=== PATIENT | female | born 1950 | race Caucasian/White ===

== ENCOUNTER 2021-07-16 16:10 | Outpatient (CLI) | payer MEDICARE, SELFPAY ==
--- NOTE | ~2021-07-16 | XR_ITS ---
EXAMINATION: XR finger 1st LT min 2V EXAM DATE: 07/16/2021 16:30 INDICATION: M79.645 - Pain in left finger(s). TECHNIQUE: Left 1st finger frontal, lateral and oblique projections obtained and reviewed. There i s no prior study for comparison. FINDINGS: There is moderate left 1st carpometacarpal, mild at the metacarpophalangeal primary osteoar thritis. There are no acute fractures or dislocations identified. There is no subcutaneous gas. The soft tissue is unremarkable. There are no radiopaque foreign bodies. 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 Reviewed, dictated and finalized at location A. [employer] UP [employer]IVER
== END 2021-07-16 16:11 | disposition home or self-care (01) ==
LOC: ANHIMG 16:14
PROVIDERS: PCP Family Medicine; Visit Provider Nurse Practitioner Family
DX: M18.12 Unilateral primary osteoarthritis of first carpometacarpal joint, left hand (principal); M19.042 Primary osteoarthritis, left hand
CPT/HCPCS: 73140

== ENCOUNTER 2022-11-05 14:32 | Outpatient (CLI) | payer MEDICARE, SELFPAY ==
[2022-11-05 15:58] LABS: Basophils Absolute Auto 0.1 K/mm3 (0.0-0.1); Basophils Percent Auto 0.8 % (0.2-1.2); Eosinophils Absolute Auto 0.1 K/mm3 (0-0.3); Eosinophils Percent Auto 1.6 % (0-4.4); Hemoglobin 15.3 g/dL (12.0-15.0); Immature Granulocyte Absolute 0.01 K/mm3 (0.00-0.031); Immature Granulocyte Percent A 0.2 % (0-0.5); Lymphocytes Absolute Auto 2.15 K/mm3 (0.9-3.2); Lymphocytes Percent Auto 35.4 % (18.3-44.2); Mean Corpuscular HGB Conc 32.6 g/dl (32-36); Mean Corpuscular Hemoglobin 32.3 pg (26-34); Mean Corpuscular Volume 99.4 fl (80-100); Mean Platelet Volume 8.8 fl (7.4-10.4); Monocytes Absolute Auto 0.4 K/mm3 (0.1-0.6); Monocytes Percent Auto 7.2 % (2.6-8.5); Neutrophils Absolute Auto 3.3 K/mm3 (1.3-6.7); Neutrophils Percent Auto 54.8 % (45.5-73.1); Platelet Count Result 294 k/mm3 (150-375); Red Blood Count 4.73 M/mm3 (4.2-5.4); White Blood Count 6.1 K/mm3 (4.5-10.0)
[2022-11-05 16:01] LABS: Appearance Urine Clear (Clear); Bilirubin Urine Negative (Negative); Blood Urine Negative (Negative); Color Urine Yellow (Yellow); Glucose Urine UA Negative (Negative); Ketones Urine Negative (Negative); Leukocyte Esterase Ur Negative LEU/UL (Negative); Nitrate Urine Negative (Negative); Protein Urine Negative (Negative); Specific Grav Ur 1.013 (1.001-1.035); Urobilinogen Urine 0.2 mg/dL (<2.0)
[2022-11-05 16:10] LABS: Add Urine Microscopic? NO
[2022-11-05 16:11] LABS: Alanine Aminotransferase 44 U/L (6-35); Albumin Level 4.6 g/dL (3.5-5.1); Alkaline Phosphatase 74 U/L (38-126); Anion Gap 5 mmol/L (8-16); Aspartate Amino Transferase 46 U/L (14-36); Bilirubin,Total 0.5 mg/dL (0.2-1.3); Blood Urea Nitrogen 29 mg/dL (7-17); Calcium 9.3 mg/dL (8.4-10.2); Carbon Dioxide 30 mmol/L (22-30); Chloride 101 mmol/L (98-107); Cholesterol 218 mg/dL (0-200); Estimated Glomerular Filt Rate > 60; Glucose 87 mg/dL (65-110); HDL Direct 55 mg/dL; Potassium 4.3 mmol/L (3.4-5.0); Sodium 136 mmol/L (137-145); Triglycerides 112 mg/dL (<150)
[2022-11-05 16:22] LABS: LDL Cholesterol Direct 130 mg/dL
== END 2022-11-05 14:33 | disposition home or self-care (01) ==
PROVIDERS: PCP Nurse Practitioner Family; Visit Provider Nurse Practitioner Family
DX: F32.A Depression, unspecified (principal); K59.00 Constipation, unspecified; E78.5 Hyperlipidemia, unspecified; N39.0 Urinary tract infection, site not specified; R82.90 Unspecified abnormal findings in urine; D64.9 Anemia, unspecified
CPT/HCPCS: 36415; 80048; 80061; 80076; 81003; 84443; 85025; 87177; 87209

== ENCOUNTER 2022-12-02 14:15 | Outpatient (CLI) | payer MEDICARE, SELFPAY | END 2022-12-02 14:16 | disposition home or self-care (01) | LOC: ANHLAB 14:16 | PROVIDERS: PCP Nurse Practitioner Family; Visit Provider Nurse Practitioner Family | DX: L29.0 Pruritus ani (principal) | CPT/HCPCS: 87177; 87209 ==

== ENCOUNTER 2022-12-17 00:31 | Day surgery (SDC) | payer MEDICARE, SELFPAY ==
[2022-12-09 09:19] VITALS: BMI 24.0
[2022-12-17 06:19] VITALS: BP 143/89; PULSE 88; RESP 20; TEMP 35.5; O2SAT 100; BMI 23.1
[2022-12-17] MEDS: LACTATED RINGERS 1,000 ML 150 ML IV CONT (06:34)
--- NOTE | 2022-12-17 07:21 | WPDANESEPPF ---
Anes - Initial Pre Proc Eval Procedure: Operation Date: 12/17/22 07:30 Proposed Procedures p Colonoscopy - Tyler Madden MD Date/Time: 12/17/22 07:21 Surgeon: Tyler Madden MD Pre Op Diagnosis: noninfectious gastroenteritis/colitis, Patient Data Age: 72 Gender: F Height: 1.6 m Weight: 59.4 kg Last Vital Signs Temp 96 F L 12/17/22 06:19 Pulse 88 12/17/22 06:19 Resp 20 12/17/22 06:19 BP 143/89 H 12/17/22 06:19 Pulse Ox 100 12/17/22 06:19 O2 Del Method Room Air 12/17/22 06:19 Allergies Allergy/AdvReac Type Severity Reaction Status Date / Time No Known Allergies Allergy Verified 12/17/22 06:18 Home Medications Medication Instructions Recorded Confirmed Type linaclotide 145 mcg capsule 145 mcg PO DAILY 1 month #30 caps 11/30/22 12/09/22 Rx (Linzess) Patient hx anesthesia problems: none Family hx anesthesia problems: none Results Review: All pre-operative results and documents have been reviewed as part of the pre-operative evaluation. [facility] Past Medical History Medical History Abnormal stools Abnormal urine Altered bowel habits Anal itching Anemia BMI 25.0-25.9,adult Chronic anxiety Chronic depression Colitis Constipation COVID-19 (~09/09/21) COVID antibody greater than 150 on 10/22/2021. Encounter for screening for cardiovascular disorders Encounter for screening for other viral diseases (~08/2021) patient requesting COVID antibody test Encounter to establish care Eyelid closing impairment Hyperlipidemia Pain of left thumb Postmenopausal hormone replacement therapy Screening for breast cancer UTI (urinary tract infection) Visual changes (~07/2021) intermittent drooping left eyelid Wellness examination Surgical History Surgical History H/O: hysterectomy History of abdominoplasty History of eyelid surgery december 2021 Family History Family History Father Hypertension Heart disease Cerebrovascular accident Mother Cancer Depression Sibling Depression Hypertension Other Hypertension Grandparent Diabetes mellitus Social History Social History Smoking status: Never smoker Alcohol intake: current Drinks per week: 7 Alcohol use details: 4 oz nightly Substance use: never Substance use type: does not use Living arrangements: alone Additional living arrangements comments: Occupation/Education: retired Gender identity (if verbalized by the patient): Female Sexual Orientation (if Verbalized by the Patient): Straight or Heterosexual Spiritual care concerns: No Anes - Eval Final PreProcedure Day of Procedure 12/17/22 07:21 Patient weight: normal Heart: regular rate and rhythm Lungs: clear to auscultation Airway: Mallampati scale class II Neurological: alert and oriented Last oral intake: >/= 8 hours ASA classification: II Emergent: no Anesthetic plan: proceed Anesthesia type and monitoring: general GIVS and standard monitoring Results Review: All pre-operative results and documents have been reviewed as part of the pre-operative evaluation. Informed Consent: The patient's anesthetic plan and its attendant risks and benefits were discussed with the patient/family/POA. Questions were solicited and answers provided to the satisfaction of the patient/family/POA.
--- NOTE | 2022-12-17 07:32 | WPDHPUPDATE1 ---
History and Physical Update Update Date/Time: 12/17/22 07:32 History and Physical has been reviewed, including an updated exam of the patient. There are NO changes in the patient's condition. Risks, benefits, and alternatives have been discussed and questions answered. Patient agrees to proceed with procedure.
[2022-12-17 07:51] VITALS: BP 139/89; PULSE 76; RESP 22; O2SAT 100
[2022-12-17 08:01] VITALS: BP 136/92; PULSE 82; RESP 20; O2SAT 100
[2022-12-17 08:11] VITALS: BP 136/107; PULSE 78; RESP 17; O2SAT 100
== END 2022-12-17 08:23 | disposition home or self-care (01) ==
PROVIDERS: PCP Nurse Practitioner Family; Visit Provider Internal Medicine Gastroenterology
PROC: 0DJD8ZZ Inspection of Lower Intestinal Tract, Via Natural or Artificial Opening Endoscopic (ICD-10-PCS; CPT 45378; principal; 2022-12-17 07:30)
DX: Z12.11 Encounter for screening for malignant neoplasm of colon (principal); D12.2 Benign neoplasm of ascending colon; K57.30 Diverticulosis of large intestine without perforation or abscess without bleeding; K64.8 Other hemorrhoids; K59.00 Constipation, unspecified
CPT/HCPCS: 45385; 88305; J2704; J7120

== ENCOUNTER 2022-12-23 15:38 | Outpatient (CLI) | payer MEDICARE, SELFPAY | END 2022-12-23 15:39 | disposition home or self-care (01) | PROVIDERS: PCP Nurse Practitioner Family; Visit Provider Nurse Practitioner Family | DX: R19.5 Other fecal abnormalities (principal); L29.0 Pruritus ani | CPT/HCPCS: 87177; 87209 ==

== ENCOUNTER 2023-01-20 12:55 | Outpatient (CLI) | payer MEDICARE, SELFPAY ==
--- NOTE | ~2023-01-20 | CT_ITS ---
EXAMINATION: CT sinus wo con DATE: 01/20/2023 13:08 INDICATION: Acute recurrent maxillary sinusitis. Bilateral sensorineural area hearing loss TECHNIQUE: Computed tomography (CT) of the paranasal sinuses was performed without contrast. Iterativ e reconstruction technique was employed. Exam dose: 268.51 mGy-cm total exam DLP. COMPARISON: None FINDINGS: There is rightward deviation of the nasal septum. Mild intralamellar cell of both middle nasal turbinates. The middle and inferior nasal turbinates are moderately prominent in size, most prominent at the left inferior nasal turbinate. The ostiomeatal units are patent. Slight lateral mucoperiosteal thickening of the right frontoethmoid area. Mild focal posterior latera l right ethmoid septal soft tissue thickening. The paranasal sinuses are otherwise normally developed and aerated. The mastoid air cells are well-developed and aerated bilaterally. Middle and inner ear apparatus appear normal bilaterally. IMPRESSION: Rightward deviation of nasal septum Soft tissue swelling of the nasal turbinates Bilateral middle nasal turbinate intralamellar cell Minimal mucoperiosteal thickening in the right frontal ethmoid and posterolateral right ethmoid area Reviewed, dictated and finalized at Location A. Reviewed, dictated and finalized at location A. IMPRESSION: Rightward deviation of nasal septum Soft tissue swelling of the nasal turbinates Bilateral middle nasal turbinate intralamellar cell Minimal mucoperiosteal thickening in the right frontal ethmoid and posterolater al right ethmoid area
== END 2023-01-20 12:56 ==
PROVIDERS: PCP Nurse Practitioner Family; Visit Provider Otolaryngology
DX: J01.01 Acute recurrent maxillary sinusitis (principal); H90.3 Sensorineural hearing loss, bilateral; J34.2 Deviated nasal septum
CPT/HCPCS: 70486

== ENCOUNTER 2023-03-29 13:24 | Outpatient (NON) | payer MEDICARE, SELFPAY | END 2023-03-29 13:25 | disposition home or self-care (01) | PROVIDERS: PCP Nurse Practitioner Family; Visit Provider Nurse Practitioner Family | DX: R19.5 Other fecal abnormalities (principal); K52.9 Noninfective gastroenteritis and colitis, unspecified; L29.0 Pruritus ani | CPT/HCPCS: 87177; 87209 ==

== ENCOUNTER 2023-04-18 12:56 | Emergency (ER) | payer MEDICARE, SELFPAY ==
--- NOTE | ~2023-04-18 | XR_ITS ---
EXAM: XR hand RT min 3V DATE: 04/18/2023 17:07 HISTORY: R fifth finger pain x 2 months, NKI . COMPARISON: None available. FINDINGS: Normal mineralization. No fracture or dislocation. No lytic or blastic lesion. Moderate po lyarticular osteoarthritis. No erosion or periosteal change. Soft tissues within normal limits. IMPRESSION: No acute osseous finding in the right hand. Reviewed, dictated and finalized at location K.
[2023-04-18 13:15] VITALS: BP 184/100; PULSE 89; RESP 18; TEMP 36.4; O2SAT 100
--- NOTE | 2023-04-18 15:51 | ECG_ITS ---
Measurements Intervals [place] Rate: 68 P: 53 TN: 148 QRS: 24 QRSD: 90 T: 45 QT: 404 QTc: 430 Interpretive Statements SINUS RHYTHM NO PREVIOUS ECG AVAILABLE FOR COMPARISON Electronically Signed On 04-19-2023 12:11:31 CDT by Kymberly Cueto M.D.
--- NOTE | 2023-04-18 15:57 | ED.GENADULT ---
HPI - General Adult General Chief complaint: Unspecified Stated complaint: weakness Time Seen by Provider: 04/18/23 15:57 Source: patient Mode of arrival: ambulatory Limitations: no limitations History of Present Illness HPI narrative: This is a 72-year-old female presenting to the ED with multiple complaints. She reports she has been feeling generally unwell over the past 10 days. States she is unable to elaborate on this. Reports for the last month she has had right arm and hand numbness/tingling. Reports this is intermittent. Reports it causes her to drop objects at times. Reports she has pain in the right fifth finger and is concerned for arthritis in her hand. States she has been in between doctors and has not seen a PCP for quite some time. States she has been to multiple doctors in the past year who have been unable to put it altogether. Denies any further area of weakness. Denies speech changes, headache, neck pain, LOC, abdominal pain, chest pain, shortness of breath, cough, nausea, vomiting. Related Data Allergies Allergy/AdvReac Type Severity Reaction Status Date / Time No Known Allergies Allergy Verified 03/23/23 11:18 Review of Systems Review of Systems: All systems as dictated in [facility] Past Medical History Medical History Abnormal stools Abnormal urine Altered bowel habits Anal itching Anemia BMI 25.0-25.9,adult Chronic anxiety Chronic depression Colitis Constipation COVID-19 (~09/09/21) COVID antibody greater than 150 on 10/22/2021. Encounter for screening for cardiovascular disorders Encounter for screening for other viral diseases (~08/2021) patient requesting COVID antibody test Encounter to establish care Eyelid closing impairment Hyperlipidemia Pain of left thumb Postmenopausal hormone replacement therapy Screening for breast cancer UTI (urinary tract infection) Visual changes (~07/2021) intermittent drooping left eyelid Wellness examination Surgical History Surgical History H/O: hysterectomy History of abdominoplasty History of eyelid surgery december 2021 Family History Family History Father Hypertension Heart disease Cerebrovascular accident Mother Cancer Depression Sibling Depression Hypertension Other Hypertension Grandparent Diabetes mellitus Social History Social History (Reviewed 03/23/23 @ 11:18 by Radha Norton Smoking status: Never smoker Alcohol intake: current Drinks per week: 7 Alcohol use details: 4 oz nightly Substance use: never Substance use type: does not use Living arrangements: alone Additional living arrangements comments: Occupation/Education: retired Gender identity (if verbalized by the patient): Female Sexual Orientation (if Verbalized by the Patient): Straight or Heterosexual Spiritual care concerns: No Exam Narrative: GENERAL: Well-appearing, well-nourished, and in no acute distress. HEAD: Normocephalic, atraumatic. EYES: PERRLA and EOMI. ENT: Nares clear, no rhinorrhea or epistaxis. Mucous membranes moist. Oropharynx without tonsillar hypertrophy exudate or other lesions. NECK: Supple. No adenopathy or masses. CHEST: No respiratory distress. Clear to auscultation. No wheezes rales or rhonchi HEART: Regular rate and rhythm. No murmur heard. Normal peripheral pulses. ABDOMEN: Soft, nontender, nondistended, normal active bowel sounds. MSK: Mild swelling throughout the right hand, worse at the interphalangeal joints. No significant erythema, warmth or drainage. Normal range of motion. No edema. SKIN: Warm, dry, no rash. NEURO: Alert and oriented x3. 4+/5 radio journalist strength on the right. 5 out of 5 on the left. 5 out of 5 strength and sensation throughout the extremities otherwise. PSYCH: Normal mood and affect. Course Malorie
[2023-04-18 16:58] LABS: Basophils Percent Auto 0.5 % (0.2-1.2); Eosinophils Absolute Auto 0.1 K/mm3 (0-0.3); Eosinophils Percent Auto 1.1 % (0-4.4); Hematocrit 44.7 % (37.0-47.0); Hemoglobin 14.7 g/dL (12.0-15.0); Immature Granulocyte Absolute 0.02 K/mm3 (0.00-0.031); Immature Granulocyte Percent A 0.3 % (0-0.5); Lymphocytes Absolute Auto 2.36 K/mm3 (0.9-3.2); Lymphocytes Percent Auto 37.5 % (18.3-44.2); Mean Corpuscular HGB Conc 32.9 g/dl (32-36); Mean Corpuscular Hemoglobin 32.7 pg (26-34); Mean Corpuscular Volume 99.6 fl (80-100); Mean Platelet Volume 9.1 fl (7.4-10.4); Monocytes Absolute Auto 0.4 K/mm3 (0.1-0.6); Monocytes Percent Auto 5.9 % (2.6-8.5); Neutrophils Absolute Auto 3.5 K/mm3 (1.3-6.7); Neutrophils Percent Auto 54.7 % (45.5-73.1); Platelet Count Result 260 k/mm3 (150-375); Red Blood Count 4.49 M/mm3 (4.2-5.4); Red Cell Distribution Width 12.1 % (11.5-14.5); White Blood Count 6.3 K/mm3 (4.5-10.0)
[2023-04-18 17:11] LABS: Alanine Aminotransferase 35 U/L (6-35); Albumin Level 4.7 g/dL (3.5-5.1); Alkaline Phosphatase 62 U/L (38-126); Anion Gap 6 mmol/L (8-16); Aspartate Amino Transferase 43 U/L (14-36); Bilirubin,Total 0.5 mg/dL (0.2-1.3); Blood Urea Nitrogen 22 mg/dL (7-17); Calcium 9.3 mg/dL (8.4-10.2); Carbon Dioxide 30 mmol/L (22-30); Chloride 101 mmol/L (98-107); Estimated CRCL calculation 64 ml/min; Estimated Glomerular Filt Rate > 60; Glucose 113 mg/dL (65-110); Potassium 3.5 mmol/L (3.4-5.0); Sodium 137 mmol/L (137-145)
[2023-04-18 17:39] LABS: Thyroid Stimulating Hormone 0.942 uIU/mL (0.465-4.680)
[2023-04-18 18:40] VITALS: BP 175/89; PULSE 63; RESP 16; O2SAT 99
[2023-04-18 18:45] VITALS: RESP 16
[2023-04-18 19:34] LABS: Appearance Urine Clear (Clear); Bilirubin Urine Negative (Negative); Blood Urine Negative (Negative); Color Urine Yellow (Yellow); Glucose Urine UA Negative (Negative); Ketones Urine Negative (Negative); Leukocyte Esterase Ur Negative LEU/UL (Negative); Nitrate Urine Negative (Negative); Protein Urine Negative (Negative); Specific Grav Ur 1.007 (1.001-1.035); Urobilinogen Urine 0.2 mg/dL (<2.0); pH Urine 7.5 (5.0-9.0)
--- NOTE | 2023-04-18 19:41 | ED.GENADULT ---
HPI - General Adult General Chief complaint: Unspecified Stated complaint: weakness Time Seen by Provider: 04/18/23 15:57 Source: patient Mode of arrival: ambulatory Limitations: no limitations History of Present Illness HPI narrative: Patient presents to the emergency department from home with concerns for right hand and wrist paresthesias. She moved back and forth between here in [place]. She does not have a primary care provider. However she has seen a urologist, and ENT a spanish speaking babysitter and well digger in the past year. Her blood pressure was addressed by the well digger and they did not recommend starting any blood pressure medications. She states she has not seen a primary care provider because it takes 6 months to get into them. She would like a referral. She was having symptoms of night sweats and waking up with paresthesias throughout her body. This has improved. The right hand and wrist paresthesias have been ongoing for the past month. Denies weakness or numbness. She states it is hard to use her hand when it is tingling. 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 Overall patient is very pleasant and well-appearing exam grossly benign Related Data Allergies Allergy/AdvReac Type Severity Reaction Status Date / Time No Known Allergies Allergy Verified 03/23/23 11:18 Review of Systems Review of Systems: CONSTITUTIONAL: Denies fever, chills, or sweats. EYES: Denies visual changes, redness, or discharge. ENT: Denies rhinorrhea, congestion, sore throat, or otalgia. CARDIOVASCULAR: Denies chest pain, palpitations, or edema. RESPIRATORY: Denies cough or dyspnea. GASTROINTESTINAL: Denies abdominal pain, nausea, vomiting, or diarrhea. GENITOURINARY: Denies dysuria or hematuria. SKIN: Denies rash or itching. MUSCULOSKELETAL: Denies back pain, joint pain, or myalgia. NEUROLOGIC: Denies headache, numbness, or weakness. PSYCHIATRIC: Denies anxiety or depression. [facility] Past Medical History Medical History Abnormal stools Abnormal urine Altered bowel habits Anal itching Anemia BMI 25.0-25.9,adult Chronic anxiety Chronic depression Colitis Constipation COVID-19 (~09/09/21) COVID antibody greater than 150 on 10/22/2021. Encounter for screening for cardiovascular disorders Encounter for screening for other viral diseases (~08/2021) patient requesting COVID antibody test Encounter to establish care Eyelid closing impairment Hyperlipidemia Pain of left thumb Postmenopausal hormone replacement therapy Screening for breast cancer UTI (urinary tract infection) Visual changes (~07/2021) intermittent drooping left eyelid Wellness examination Surgical History Surgical History H/O: hysterectomy History of abdominoplasty History of eyelid surgery december 2021 Family History Family History Father Hypertension Heart disease Cerebrovascular accident Mother Cancer Depression Sibling Depression Hypertension Other Hypertension Grandparent Diabetes mellitus Social History Social History Smoking status: Never smoker Alcohol intake: current Drinks per week: 7 Alcohol use details: 4 oz nightly Substance use: never Substance use type: does not use Living arrangements: alone Additional living arrangements comments: Occupation/Education: retired Gender identity (if verbalized by the patient): Female Sexual Orientation (if Verbalized by the Patient): Straight or Heterosexual Spiritual care concerns: No Exam Narrative: GENERAL: Well-appearing, well-nourished, and in no acute distress. HEAD: Normocephalic, atraumatic. EYES: PERRLA and EOMI. ENT: Nares clear, no rhinorrhea or epistaxis. Mucous membranes moist. NECK: Supple. CHEST: Clear to aus
[2023-04-18 19:53] LABS: Add Urine Microscopic? NO
[2023-04-18 20:29] VITALS: BP 178/86; PULSE 79; RESP 16; O2SAT 99
== END 2023-04-18 20:33 | disposition home or self-care (01) ==
PROVIDERS: Physician Assistant; Emergency Provider Emergency Medicine
DX: R20.2 Paresthesia of skin (principal); I10 Essential (primary) hypertension; F41.9 Anxiety disorder, unspecified; F32.A Depression, unspecified
CPT/HCPCS: 36415; 73130; 80053; 81003; 84443; 85025; 93005; 99283

== ENCOUNTER 2023-04-25 11:02 | Outpatient (CLI) | payer MEDICARE, SELFPAY | END 2023-04-25 11:03 | disposition home or self-care (01) | LOC: ANHAUDASC 11:02 | PROVIDERS: Visit Provider Otolaryngology | DX: H90.3 Sensorineural hearing loss, bilateral (principal) | CPT/HCPCS: 92557; 92567 ==

== ENCOUNTER 2023-05-24 13:45 | Outpatient (NON) | payer MEDICARE, SELFPAY | END 2023-05-24 13:46 | disposition home or self-care (01) | PROVIDERS: Visit Provider Internal Medicine Gastroenterology | DX: R19.5 Other fecal abnormalities (principal) | CPT/HCPCS: 87045; 87177; 87209; 87427; 87449 ==

== ENCOUNTER 2023-05-31 01:34 | Day surgery (SDC) | payer MEDICARE, SELFPAY ==
[2023-05-18 14:44] VITALS: BMI 23.3
--- NOTE | 2023-05-27 10:30 | SUR.PREOP ---
Patient called regarding upcoming procedure. Reviewed preop instructions, appointment times, and procedure prep.
[2023-05-31 12:49] VITALS: BP 170/96; PULSE 82; RESP 16; TEMP 36.6; O2SAT 99
[2023-05-31] MEDS: LACTATED RINGERS 1,000 ML 150 ML IV CONT (12:55)
--- NOTE | 2023-05-31 13:27 | WPDHPUPDATE1 ---
History and Physical Update Update Date/Time: 05/31/23 13:27 History and Physical has been reviewed, including an updated exam of the patient. There are NO changes in the patient's condition. Risks, benefits, and alternatives have been discussed and questions answered. Patient agrees to proceed with procedure.
--- NOTE | 2023-05-31 13:33 | WPDANESEPPF ---
Anes - Initial Pre Proc Eval Procedure: Operation Date: 05/31/23 13:30 Proposed Procedures p Esophagogastroduodenoscopy - Tyler Madden MD Date/Time: 05/31/23 13:33 Surgeon: Tyler Madden MD Pre Op Diagnosis: other chest pain Patient Data Age: 72 Gender: F Height: 1.65 m Weight: 63 kg Last Vital Signs Temp 97.8 F 05/31/23 12:49 Pulse 82 05/31/23 12:49 Resp 16 05/31/23 12:49 BP 170/96 H 05/31/23 12:49 Pulse Ox 99 05/31/23 12:49 O2 Del Method Room Air 05/31/23 12:49 Allergies Allergy/AdvReac Type Severity Reaction Status Date / Time No Known Allergies Allergy Verified 05/31/23 12:42 Home Medications Medication Instructions Recorded Confirmed Type No Home Medications 05/31/23 05/31/23 History Patient hx anesthesia problems: none Family hx anesthesia problems: none Results Review: All pre-operative results and documents have been reviewed as part of the pre-operative evaluation. [facility] Past Medical History Medical History (Updated 05/05/23 @ 12:16 by Tyler Madden MD) Abnormal stools Abnormal urine Altered bowel habits Anal itching Anemia BMI 25.0-25.9,adult Chronic anxiety Chronic depression Colitis Constipation COVID-19 (~09/09/21) COVID antibody greater than 150 on 10/22/2021. Encounter for screening for cardiovascular disorders Encounter for screening for other viral diseases (~08/2021) patient requesting COVID antibody test Encounter to establish care Eyelid closing impairment Hyperlipidemia Non-cardiac chest pain Pain of left thumb Postmenopausal hormone replacement therapy Screening for breast cancer UTI (urinary tract infection) Visual changes (~07/2021) intermittent drooping left eyelid Wellness examination Surgical History Surgical History H/O: hysterectomy History of abdominoplasty History of eyelid surgery december 2021 Family History Family History Father Hypertension Heart disease Cerebrovascular accident Mother Cancer Depression Sibling Depression Hypertension Other Hypertension Grandparent Diabetes mellitus Social History Social History (Reviewed 03/23/23 @ 11:18 by Radha Norton Smoking status: Never smoker Alcohol intake: current Drinks per week: 7 Alcohol use details: occasional Substance use: never Substance use type: does not use Living arrangements: alone Additional living arrangements comments: Occupation/Education: retired Gender identity (if verbalized by the patient): Female Sexual Orientation (if Verbalized by the Patient): Straight or Heterosexual Spiritual care concerns: No Anes - Eval Final PreProcedure Day of Procedure 05/31/23 13:33 Patient weight: normal Heart: regular rate and rhythm Lungs: clear to auscultation Airway: Mallampati scale class II Neurological: alert and oriented Last oral intake: >/= 8 hours ASA classification: II Emergent: no Anesthetic plan: proceed Anesthesia type and monitoring: general GIVS and standard monitoring Results Review: All pre-operative results and documents have been reviewed as part of the pre-operative evaluation. Informed Consent: The patient's anesthetic plan and its attendant risks and benefits were discussed with the patient/family/POA. Questions were solicited and answers provided to the satisfaction of the patient/family/POA.
[2023-05-31 14:05] VITALS: BP 160/107; RESP 16; O2SAT 99
[2023-05-31 14:15] VITALS: BP 153/98; RESP 20; O2SAT 98
[2023-05-31 14:25] VITALS: BP 150/90; RESP 20; O2SAT 98
== END 2023-05-31 14:33 | disposition home or self-care (01) ==
PROVIDERS: Visit Provider Internal Medicine Gastroenterology
PROC: 0DJ08ZZ Inspection of Upper Intestinal Tract, Via Natural or Artificial Opening Endoscopic (ICD-10-PCS; CPT 43235; principal; 2023-05-31 13:30)
DX: K44.9 Diaphragmatic hernia without obstruction or gangrene (principal); R19.5 Other fecal abnormalities; R19.4 Change in bowel habit; F32.A Depression, unspecified
CPT/HCPCS: 43239; 88305; J2704; J7120

== ENCOUNTER 2023-10-11 23:05 | Emergency (ER) | payer MEDICARE, SELFPAY ==
--- NOTE | ~2023-10-11 | CT_ITS ---
EXAMINATION: CTA chest PE protocol DATE: 10/12/2023 01:33 INDICATION: Shortness of breath. TECHNIQUE: Computed tomography angiography (CTA) of the chest was performed with 100 mL Omnipaque-350 intravenous contrast timed to evaluate the pulmonary arteries. Coronal maximum intensity projection 3D-reconstructions were created by the technologist. Automated exposure control and iterative reconst ruction technique were employed. The dose-length product was 417.73 mGy-cm. COMPARISON: None. FINDINGS: The lungs demonstrate diffuse septal thickening. There are groundglass and airspace opaciti es in the lungs, worst in the upper lobes. A calcified left lung nodule and calcified left hilar lymp h nodes are consistent with old granulomatous disease. No pleural effusion. The heart size is normal. No pericardial effusion. There is no pulmonary embolus. There is thoracic levoscoliosis. There is se rene cervical and thoracic and lumbar spondylosis. There is mild chronic anterior wedging of multiple vertebral bodies. There is a fracture deformity of the body of the sternum. IMPRESSION: 1. Diffuse lung disease with an upper lobe predominance, likely pulmonary edema and/or pneumonia. 2. Age-indeterminate fracture deformity of the body of the sternum. 3. No pulmonary embolus. Reviewed, dictated and finalized at location A.
--- NOTE | ~2023-10-11 | XR_ITS ---
EXAMINATION: XR chest 1V portable INDICATION: Overdose TECHNIQUE: Portable AP chest at 2326 hours COMPARISON: None available FINDINGS: There are diffuse opacities throughout the lungs with a mid and upper lung zone predominanc e. The heart size is normal. No pleural effusion or pneumothorax. There is questionable right posteri or eighth rib fracture. Severe thoracic and lumbar spondylosis is noted. Surgical clips in the right upper quadrant are likely from prior cholecystectomy. IMPRESSION: 1. Diffuse lung disease with a mid and upper lung zone predominance which could reflect pulmonary stephen ma and/or pneumonia. Reviewed, dictated and finalized at location F. IMPRESSION: 1. Diffuse lung disease with a mid and upper lung zone predominance which could reflect pulmonary edema and/or pneumonia.
[2023-10-11 23:02] VITALS: BP 147/96; PULSE 97; RESP 24; TEMP 36.6; O2SAT 95
--- NOTE | 2023-10-11 23:11 | ECG_ITS ---
Measurements Intervals [place] Rate: 96 P: 64 LA: 148 QRS: 51 QRSD: 94 T: 60 QT: 393 QTc: 498 Interpretive Statements SINUS RHYTHM BASELINE ARTIFACT- V4 NORMAL ECG COMPARED TO ECG 04/18/2023 16:12:55 NO SIGNIFICANT CHANGES Electronically Signed On 10-12-2023 14:13:13 CDT by Cr Briones D.O.
--- NOTE | 2023-10-11 23:14 | ED.GENADULT ---
HPI - General Adult General Chief complaint: Overdose Stated complaint: OVERDOSE, ROSC IN FIELD Time Seen by Provider: 10/11/23 23:11 History of Present Illness HPI narrative: Patient is a 73-year-old female who presents to the emergency department this morning after an accidental overdose. Patient's son called EMS due to concern that his mother was at responsive. Solar Design Engineer were 1st on scene due to concern for apnea and a nonpalpable pulse they initiated CPR and administered 4 mg of intranasal Narcan. Patient achieved Sarkis immediately and upon EMS arrival, she was responsive to painful stimuli. By the time patient arrived to our emergency department patient was more responsive and vitals were stable. Patient's daughter did present to the emergency department and test that patient was working on a birthday gift for her son and wanted to stay upon longer to finish it so she decided to use some of her son's cocaine which he purchased off the internet, the [employer]. Daughter states that son is unsure if the cocaine has been laced with anything including fentanyl as he is unsure of where it came from. Daughter has no concern at this time that this was an intentional overdose and denies ever witnessing any previous suicidal behavior or ideations. There are no other modifying, alleviating, or precipitating factors at this time. Related Data Allergies Allergy/AdvReac Type Severity Reaction Status Date / Time No Known Allergies Allergy Verified 10/11/23 23:29 Review of Systems Review of Systems: All systems are reviewed and are negative unless stated otherwise in the HPI. [facility] Past Medical History Medical History Abnormal stools Abnormal urine Altered bowel habits Anal itching Anemia BMI 25.0-25.9,adult Chronic anxiety Chronic depression Colitis Constipation COVID-19 (~09/09/21) COVID antibody greater than 150 on 10/22/2021. Encounter for screening for cardiovascular disorders Encounter for screening for other viral diseases (~08/2021) patient requesting COVID antibody test Encounter to establish care Eyelid closing impairment Hyperlipidemia Non-cardiac chest pain Pain of left thumb Postmenopausal hormone replacement therapy Screening for breast cancer UTI (urinary tract infection) Visual changes (~07/2021) intermittent drooping left eyelid Wellness examination Surgical History Surgical History H/O: hysterectomy History of abdominoplasty History of eyelid surgery december 2021 Family History Family History Father Hypertension Heart disease Cerebrovascular accident Mother Cancer Depression Sibling Depression Hypertension Other Hypertension Grandparent Diabetes mellitus Social History Social History Smoking status: Never smoker Alcohol intake: current Drinks per week: 7 Alcohol use details: occasional Substance use: never Substance use type: does not use Living arrangements: alone Additional living arrangements comments: Occupation/Education: retired Gender identity (if verbalized by the patient): Female Sexual Orientation (if Verbalized by the Patient): Straight or Heterosexual Spiritual care concerns: No Exam Narrative: General: Awake, afebrile, in no acute distress. HEENT: PERRL, no rhinorrhea, no post nasal drip, oropharynx clear. Neck: Trachea midline, no JVD, no lymphadenopathy. Cardiovascular: Regular rate and rhythm, no murmurs, rubs or gallops, no peripheral edema. Respiratory: Clear to auscultation bilaterally, no tachypnea, no wheezing, no rhonchi, no rubs, no respiratory distress. Abdomen: Soft, nontender, nondistended, no rebound, no guarding, no peritoneal signs. Musculoskeletal: No joint swelling or deformity, normal muscle tone.
[2023-10-11 23:17] VITALS: RESP 24; O2SAT 96
[2023-10-11 23:22] LABS: Basophils Absolute Auto 0.1 K/mm3 (0.0-0.1); Basophils Percent Auto 0.6 % (0.2-1.2); Eosinophils Absolute Auto 0.1 K/mm3 (0-0.3); Eosinophils Percent Auto 1.7 % (0-4.4); Immature Granulocyte Absolute 0.12 K/mm3 (0.00-0.031); Immature Granulocyte Percent A 1.4 % (0-0.5); Lymphocytes Absolute Auto 3.01 K/mm3 (0.9-3.2); Lymphocytes Percent Auto 35.7 % (18.3-44.2); Mean Corpuscular HGB Conc 32.6 g/dl (32-36); Mean Corpuscular Hemoglobin 31.2 pg (26-34); Mean Corpuscular Volume 95.8 fl (80-100); Mean Platelet Volume 8.8 fl (7.4-10.4); Monocytes Absolute Auto 0.7 K/mm3 (0.1-0.6); Monocytes Percent Auto 7.8 % (2.6-8.5); Neutrophils Absolute Auto 4.5 K/mm3 (1.3-6.7); Neutrophils Percent Auto 52.8 % (45.5-73.1); Platelet Count Result 225 k/mm3 (150-375); Red Blood Count 4.49 M/mm3 (4.2-5.4); Red Cell Distribution Width 13.9 % (11.5-14.5); White Blood Count 8.4 K/mm3 (4.5-10.0)
[2023-10-11 23:28] VITALS: PULSE 96
[2023-10-11 23:32] LABS: Lactic Acid Reflex 1.6 mmol/L (0.7-2.0); Salicylate < 1.0 mg/dL (2-20)
[2023-10-11 23:36] LABS: Alanine Aminotransferase 47 U/L (6-35); Albumin Level 4.2 g/dL (3.5-5.1); Alkaline Phosphatase 66 U/L (38-126); Anion Gap 8 mmol/L (4-12); Aspartate Amino Transferase 69 U/L (14-36); Bilirubin,Total 0.4 mg/dL (0.2-1.3); Blood Urea Nitrogen 27 mg/dL (7-17); Calcium 9.1 mg/dL (8.4-10.2); Carbon Dioxide 25 mmol/L (22-30); Chloride 104 mmol/L (98-107); Estimated CRCL calculation 59 ml/min; Estimated Glomerular Filt Rate > 60; Glucose 225 mg/dL (65-110); Magnesium 2.2 mg/dL (1.6-2.3); Potassium 3.5 mmol/L (3.4-5.0); Sodium 137 mmol/L (137-145)
[2023-10-11 23:41] LABS: Acetaminophen < 10 ug/mL (10-30)
[2023-10-11 23:45] LABS: Creatine Kinase 156 U/L (30-135)
[2023-10-11 23:46] VITALS: BP 142/91; PULSE 90; RESP 20; O2SAT 94
[2023-10-12] VITALS (7 sets, daily range): BP systolic 127–161; BP diastolic 91–99; PULSE 82–91; RESP 13–18; O2SAT 95–98
[2023-10-12 00:07] LABS: Ethanol < 10 mg/dL (<10)
[2023-10-12 00:09] LABS: Bacteria Urine None Seen /hpf; Hyaline Casts Urine Present /lpf; Need Manual Microscopic Reviewed; RBC Urine 0-2 /hpf (0-2); Squamous Epithelial Cell Urine None Seen /hpf (Few); WBC Urine 0-5 /hpf (0-3)
[2023-10-12 00:10] LABS: Appearance Urine Clear (Clear); Bilirubin Urine Negative (Negative); Blood Urine Trace-intact (Negative); Color Urine Yellow (Yellow); Glucose Urine UA 1+ mg/dL (Negative); Ketones Urine Negative (Negative); Nitrate Urine Negative (Negative); Protein Urine 2+ mg/dL (Negative); Specific Grav Ur >= 1.030 (1.001-1.035); Urobilinogen Urine 0.2 mg/dL (<2.0)
[2023-10-12 00:11] LABS: Add Urine Microscopic? YES; Barbiturate Screen Urine Negative (Negative); Benzodiazepines Screen Urine Negative (Negative); Leukocyte Esterase Ur Negative LEU/UL (Negative)
[2023-10-12 00:20] LABS: Cannabinoid Screen Urine Negative (Negative); Cocaine Screen Urine Positive (Negative); Methadone Screen Urine Negative (Negative); Opiate Screen Urine Negative (Negative); Phencyclidine Screen Urine Negative (Negative)
[2023-10-12 00:29] LABS: Amphetamine Screen Urine Positive (Negative)
[2023-10-12 00:51] LABS: Influenza A QL RT-PCR Negative (Negative); Influenza B QL RT-PCR Negative (Negative); RSV RNA, RT-PCR Negative (Negative); SARS-CoV-2 RNA PCR Negative (Negative)
[2023-10-12] MEDS: KETOROLAC 15 MG/ML VIAL (*BKC) IV PUSH (01:03)
[2023-10-12] MEDS: ONDANSETRON INJ 4 MG/2 ML VIAL IV PUSH (01:03)
[2023-10-12 06:49] LABS: Total Triiodothyronine (T3) 1.41 NG/ML (0.97-1.69)
== END 2023-10-12 05:18 | disposition home or self-care (01) ==
PROVIDERS: Emergency Provider Emergency Medicine
DX: J18.9 Pneumonia, unspecified organism (principal); T40.411A Poisoning by fentanyl or fentanyl analogs, accidental (unintentional), initial encounter; Z20.822 Contact with and (suspected) exposure to COVID-19; S22.20XA Unspecified fracture of sternum, initial encounter for closed fracture; X58.XXXA Exposure to other specified factors, initial encounter; F41.9 Anxiety disorder, unspecified; F32.A Depression, unspecified; E78.5 Hyperlipidemia, unspecified
CPT/HCPCS: 36415; 71045; 71275; 80053; 80307; 81001; 82550; 83605; 83735; 84439; 84443; 84480; 85025; 87637; 93005; 96374; 96375; 99284; J1885; J2405; Q9967